=== PATIENT | male | born 1950 | race Caucasian/White ===

== ENCOUNTER 2019-05-20 15:57 | Outpatient (CLI) | payer MEDICARE ==
--- NOTE | 2019-05-20 16:15 | RAD ---
EXAM: 3 views of the right shoulder HISTORY: Right acromioclavicular arthritis COMPARISON: None FINDINGS: There is no evidence of acute fracture or dislocation. Mild to moderate joint space narrowi ng is seen in the, clavicular and glenohumeral joints. No soft tissue swelling is seen. The visualized thorax is unremarkable. IMPRESSION: Moderate right shoulder osteoarthritis without acute osseous abnormality.
== END 2019-05-20 15:58 | disposition home or self-care (01) ==
LOC: MADRAD 15:57
PROVIDERS: ATTEND Family Medicine
DX: M19.011 Primary osteoarthritis, right shoulder (principal)

== ENCOUNTER 2023-02-01 08:28 | Outpatient (CLI) | payer MEDICARE | END 2023-02-01 08:29 | disposition home or self-care (01) | LOC: MADLAB 08:28 | PROVIDERS: ATTEND Internal Medicine | DX: R91.1 Solitary pulmonary nodule (principal); J98.4 Other disorders of lung | CPT/HCPCS: 71046 ==

== ENCOUNTER 2023-02-07 09:10 | Outpatient (CLI) | payer MEDICARE | END 2023-02-07 09:11 | disposition home or self-care (01) | LOC: MADCT 09:10 | PROVIDERS: ATTEND Internal Medicine | DX: R91.1 Solitary pulmonary nodule (principal); J98.4 Other disorders of lung | CPT/HCPCS: 71250 ==